=== PATIENT | female | born 2000 | race Caucasian/White ===

== ENCOUNTER 2020-10-08 21:03 | Emergency (ER) | payer SELFPAY ==
[2020-10-08 21:04] VITALS: BP 125/74; PULSE 114; RESP 18; TEMP 36.2; O2SAT 99; BMI 23.5
--- NOTE | 2020-10-08 21:20 | EKG12_ITS ---
Test Reason : CP Blood Pressure : / mmHG Vent. Rate : 093 BPM Atrial Rate : 093 BPM P-R Int : 112 ms QRS Dur : 072 ms QT Int : 334 ms P-R-T Axes : 035 073 031 degrees QTc Int : 415 ms Normal sinus rhythm Normal ECG Confirmed by MERCEDES LORD, ELIANA ([id number]), editor department SUSAN DUENAS ([id number]) on 10/10/2020 10:07:27 AM Referred By: HORTENSIA Confirmed By:ELIANA LONG MD
--- NOTE | 2020-10-08 21:20 | CT_ITS ---
EXAMINATION : Head CT w/out contrast HISTORY : Headache COMPARISON : None. TECHNIQUE : Multiple contiguous axial images were obtained from the skull base to the vertex without intravenous contrast. A radiation dose optimization technique was used for this scan. FINDINGS : The ventricles and sulci are normal in size. There is no evidence for acute intracranial hemorrhage, mass effect, or midline shift. There is no extra-axial fluid collection. There is normal rubio-white differentiation, without CT evidence of acute ischemia or infarct. The skull base and calvarium are unremarkable. The orbits are unremarkable. The paranasal sinuses are clear. The mastoid air cells are well-aerated. The soft tissues are unremarkable. CT/Brain/Head without Contrast IMPRESSION: No acute intracranial abnormality. Electronically Signed: Eligio Huitron MD at 21:52 EDT Tel , Service support ,
--- NOTE | 2020-10-08 21:22 | ED.RN ---
NO OLD EKGS IN MUSE
[2020-10-08] MEDS: 0.9% Normal Saline 1,000 ML 1000 ML IV (21:39)
[2020-10-08] MEDS: Ketorolac 30 MG/ML Syringe IV (21:39)
[2020-10-08 21:43] LABS: Absolute Neutrophil Count 2.7 X10^3/uL (2.0-7.7); Basophil# 0.05 X10^3/uL; Basophil% 0.7 % (0-1); Eosinophil# 0.08 X10^3/uL; Eosinophils% 1.1 % (0-5); Hematocrit 38.5 % (37-47); Hemoglobin 12.6 g/dL (12.0-15.0); Lymphocyte % 51.4 % (19-41); Mean Corp Hgb Conc 32.7 g/dL (32-36); Mean Corpuscular Hgb 28.9 pg (27.0-32.0); Mean Corpuscular Volume 88.3 fL (81-99); Mean Platelet Vol. 10.1 fl (6.2-12.0); Monocyte# 0.58 X10^3/uL; Monocyte% 8.3 % (0-10); NRBC Flagged by Analyzer 0 % (0-5); Neutrophil # 2.69 X10^3/uL (2.7-7.7); Neutrophil % 38.4 % (47-70); Platelet Count 291 K/mm3 (150-450); RBC Distribution Width CV 11.5 % (11.6-14.6); RBC Distribution Width SD 36.9 fl (35.1-43.9); Red Blood Count 4.36 M/mm3 (4.2-5.4)
--- NOTE | 2020-10-08 21:44 | ED.DCSUM_ITS ---
History of Present Illness Chief Complaint: Chest Pain Informant: Patient Onset: Days Context: Gradual Onset Timing: Continuous Current Severity: Moderate Maximum Severity: Moderate Narrative: Patient is a 19-year-old female is otherwise healthy the presents to the emergency department with left-sided chest pain, neck pain, mild headache. Patient states that she received the Theo & Theo vaccine on the eighth. She states that 4 days ago, she began to have intermittent burning pain across her left chest. Is worse with breathing. She states that she is also had pain in her left neck and tingling in her face. Patient is on control. She denies any history of pulmonary embolus. She denies any visual change, throbbing headache, or other systemic symptoms. She states she is otherwise been in her normal state of health. Prior similar symptoms: No Recent Illness/Hospitalization: No Past Medical History - Allergies and Home Meds Allergies/Adverse Reactions: Allergies No Known Allergies Allergy (Verified 10/08/20 21:06) Primary Care Physician: Rosina Guillory MD [Primary Care Provider] - Prior records reviewed: Yes Past Medical History: None Surgical History: noncontributory Smoking Status: Never smoker Review of Systems General: Denies: Chills, Fever, Sweats Eyes: Denies: Visual changes - bilaterally, Diplopia ENT: Denies: Rhinorrhea, Sore throat Cardiovascular: Reports: Chest pain. Denies: Palpitations Respiratory: Reports: Dyspnea. Denies: Cough, Dyspnea on exertion Gastrointestinal: Denies: Abdominal pain, Nausea, Vomiting, Diarrhea, Melena, Hematochezia Genitourinary: Denies: Dysuria, Hematuria, Frequency Musculoskeletal: Denies: Back pain, Extremity Pain Skin: Denies: Rash, Wounds Neurological: Denies: Headache, Weakness, Numbness Physical Exam Vital Signs/Narrative: Vital Signs Temp Pulse Resp BP Pulse Ox 10/08/20 21:04 97.2 F L 114 H 18 125/74 H 99 Inital Vital Signs reviewed: Yes General: Well nourished, Well developed, No Acute Distress Head: Normocephalic, Atraumatic Eyes: Perrl, EOMI ENT: Moist mucous membranes, No rhinorrhea Neck: Supple, Nontender Cardiovascular: Regular rate, Regular rhythm, No murmurs Respiratory: No distress, CTA bilaterally, Chest nontender Abdomen: Soft, Nontender, Nondistended, Normal bowel sounds Back: Nontender, Normal Inspection Extremities: Nontender, No edema Skin: Normal color, No rash Neurological: Alert, Oriented x3, Cranial nerves II-XII grossly intact, Normal S trength, Normal Sensation Psychological: Normal affect, Normal Mood Diagnostic/Tx/Re-eval Clinical Impression(s) from Imaging Studies Brain CT 10/08/20 21:20 IMPRESSION: No acute intracranial abnormality. Electronically Signed: Eligio Huitron MD at 21:52 EDT Tel , Service support , Abnormal Lab Results 10/08/20 10/08/20 10/08/20 21:31 21:31 21:31 WBC 7.0 RBC 4.36 Hgb 12.6 Hct 38.5 MCV 88.3 MCH 28.9 MCHC 32.7 RDW Std Deviation 36.9 RDW Coeff of Glen 11.5 L Plt Count 291 MPV 10.1 Immature Gran % (Auto) 0.100 Neut % (Auto) 38.4 L Lymph % (Auto) 51.4 H Harlan % (Auto) 8.3 Eos % (Auto) 1.1 Baso % (Auto) 0.7 Absolute Neuts (auto) 2.7 Absolute Lymphs (auto) 3.60 Nucleated RBC % 0 D-Dimer Quant (PE/DVT) 0.34 Sodium 139 Potassium 3.5 Chloride 106 Carbon Dioxide 27.0 Anion Gap 6 BUN 11 Creatinine 0.91 Estim Creat Clear Calc 95.90 Est GFR (MDRD) Af Amer 101 Est GFR (MDRD) Non-Af 83 BUN/Creatinine Ratio 12.1 Glucose 96 Calcium 9.0 Total Bilirubin 0.60 AST 21 ALT 43 Alkaline Phosphatase 51 Total Protein 7.4 Albumin 3.5 Globulin 3.9 Albumin/Globulin Ratio 0.9 - Rhythm Strip Rhythm Strip: Sinus Rhythm Rate: 80 Ectopy: None - EKG Initial EKG Interpretation: Sinus Rhythm, No Acute Injury Pattern Prior: No Prior - Medical Decision Making Patient presents with multiple symptoms. Her examination is reassuring. Her pain does seem atypical, given her recent vaccination I did obtain metabolic work-up. EKG was obtained. Was sinus rhythm without acute ischemia. Chest x- ray was unremarkable. There is no acute process. Is reviewed by both myself and the radiologist. I did obtain noncontrast head CT which was also unremarkable. Patient's labs and D-dimer were negative. At this point, I do feel there is pain is likely musculoskeletal. I do not suspect a dangerous process. She is not hypoxic or tachypneic. I am going to treat her with anti- inflammatories. At this point, she will be discharged home. Impression 1. Atypical chest pain ED Disposition - Plan for ED Patient: Instructions: ED Chest Pain, Noncardiac Prescriptions: Naproxen [Naprosyn] 500 mg PO BID PRN #20 tablet Prescription Printed Referrals: Rosina Guillory MD [Primary Care Provider] -
[2020-10-08 21:53] LABS: D-Dimer Quantitative (DVT/PE) 0.34 FEU/ug/m (0.27-0.49)
--- NOTE | 2020-10-08 21:59 | RAD_ITS ---
STUDY: X-RAY CHEST REASON FOR EXAM: Female, 19 years old. sob TECHNIQUE: Single AP portable view of the chest. COMPARISON: None. FINDINGS: The lungs are clear and expanded. There is no demonstrated pleural abnormality. Normal size heart. Normal mediastinum and lizz. Normal visualized pulmonary arteries. Normal visualized aortic arch and descending thoracic aorta. Normal visualized thoracic spine. Normal visualized ribs, clavicles, and shoulders. There is no demonstrated abnormality of the visualized soft tissue structures of the upper abdomen. RAD/Chest 1 View (Portable) IMPRESSION: Normal x-ray examination of the chest. Electronically Signed: Madhuri Gutierrez MD at 22:54 EDT Tel , Service support ,
[2020-10-08 22:00] LABS: ALB/GLOB Ratio 0.9 RATIO (0.9-2.4); AST(SGOT) 21 U/L (15-37); Alanine Aminotransfer ALT/SGPT 43 U/L (13-56); Albumin, Serum 3.5 g/dL (3.2-5.0); Alkaline Phosphatase 51 U/L (45-117); Anion Gap 6 (5-15); BUN 11 mg/dL (7-18); BUN/Creat Ratio 12.1 RATIO (10-20); Chloride 106 mmol/L (98-107); Creatinine, Serum 0.91 mg/dL (0.55-1.02); EST Glomerular Filtration Rate 83 mL/min (>60); Est Glom Filt Rate - Afr Amer 101 mL/min (>60); Globulin 3.9 g/dL (2.2-4.2); Glucose 96 mg/dL (74-106); Potassium 3.5 mmol/L (3.5-5.1); Protein, Total 7.4 g/dL (6.4-8.2); Sodium Level 139 mmol/L (136-145)
[2020-10-08 22:07] VITALS: BP 114/63; PULSE 75; RESP 16; O2SAT 98
[2020-10-08 22:23] VITALS: BP 109/72; PULSE 62; RESP 15; O2SAT 100
[2020-10-08 22:38] LABS: Internal QC Validated? YES +Cl - CLEAR BKGD; Pregnancy, Urine Negative Negative
== END 2020-10-08 22:35 | disposition home or self-care (01) ==
LOC: ED 22:27
PROVIDERS: Emergency Provider Emergency Medicine; PCP Family Medicine
DX: R07.89 Other chest pain (principal); Z79.3 Long term (current) use of hormonal contraceptives; R51.9 Headache, unspecified; R20.2 Paresthesia of skin; M54.2 Cervicalgia
CPT/HCPCS: 70450; 71045; 80053; 81025; 85025; 85379; 93005; 96361; 96374; 99284; J7030; A4216